=== PATIENT | male | born 1955 | race Caucasian/White ===

== ENCOUNTER 2018-03-29 15:26 | Emergency (ER) | payer MEDICARE, OTHER ==
[~2018-03-29] VITALS: Ht 180.3 cm; Wt 122.5 kg
[2018-03-29] MEDS ORDERED: LISINOPRIL2.5 MG PO (15:44)
[2018-03-29] MEDS ORDERED: GLYBURIDE5 MG PO (15:44)
[2018-03-29] MEDS ORDERED: PLAVIX75 MG PO (15:44)
[2018-03-29] MEDS ORDERED: METOPROLOL TART25 MG PO (15:44)
[2018-03-29] MEDS ORDERED: METFORMIN HCL500 MG PO (15:44)
[2018-03-29] MEDS ORDERED: FUROSEMIDE40 MG PO (15:44)
[2018-03-29] MEDS ORDERED: MORPHINE SULFATE INJ 4 MG/ML INJ IV ONE (16:15)
[2018-03-29 16:25] LABS: BASOPHILS # (AUTO) 0.1 (0.0-0.1); BASOPHILS % 0.8 % (0.0-1.0); EOSINOPHILS # (AUTO) 0.2 (0.0-0.4); EOSINOPHILS % 2.9 % (0.0-6.0); HEMATOCRIT 53.7 % (38.2-49.6); HEMOGLOBIN 16.4 g/dL (14.0-18.0); LYMPHOCYTES # (AUTO) 1.3 (1.0-3.2); MEAN CORPUSCULAR HEMOGLOBIN 31.8 pg (28-32); MEAN CORPUSCULAR HGB CONC 30.5 g/dL (31-35); MEAN CORPUSCULAR VOLUME 104.3 fL (81-99); MONOCYTES # (AUTO) 0.6 (0.2-0.8); MONOCYTES % 8.2 % (4.4-11.3); NEUTROPHILS # (AUTO) 5.4 (2.1-6.9); NEUTROPHILS % 70.7 % (38.7-80.0); PLATELET COUNT 211 x10e3/uL (140-360); RED BLOOD COUNT 5.15 x10e6/uL (4.3-5.7); RED CELL DISTRIBUTION WIDTH 14.4 % (11.7-14.4)
[2018-03-29 16:51] LABS: ALANINE AMINOTRANSFERASE 12 IU/L (0-55); ALBUMIN 3.4 g/dL (3.5-5.0); ALKALINE PHOSPHATASE 95 IU/L (40-150); ANION GAP 13.6 mmol/L (8-16); BLOOD UREA NITROGEN 27 mg/dL (7-26); BUN/CREATININE RATIO 27 (6-25); CALCIUM 8.9 mg/dL (8.4-10.2); CARBON DIOXIDE 36 mmol/L (22-29); CHLORIDE 96 mmol/L (98-107); CREATINE KINASE 45 IU/L (30-200); EST GLOMERULAR FILTRATION RATE > 60 ML/MIN (60-); GLUCOSE 141 mg/dL (74-118); POTASSIUM 5.6 mmol/L (3.5-5.1); SODIUM 140 mmol/L (136-145)
[2018-03-29] MEDS ORDERED: SOD POLYSTYRENE SULFONATE SUSP 15 GM/60 ML BTL PR ONE (18:15)
[2018-03-29] MEDS ORDERED: HYDROMORPHONE 1MG/1ML INJ IV STA (18:21)
--- NOTE | 2018-03-29 18:51 | Diagnostic Imaging Report ---
CT HEAD WITHOUT CONTRAST COMPARISON: None INDICATION: Fall, prior CVA Technique: Noncontrast axial scans were obtained from skull base to the vertex. Coronal and sagittal reconstructions obtained from the axial data. One or more of the following dose reduction techniques were used: Automated exposure control, adjustment of the mA and/or kV according to patient size, and/or utilization of iterative reconstruction technique. Streak and beam hardening artifacts obscure some details. DISCUSSION: Scalp/Skull: Unremarkable. Brain sulci: Mildly prominent. Ventricles: Compensatory dilatation. Extra-axial spaces: No masses or fluid collections. Carotid siphon calcifications are present. Parenchyma: Mild bilateral deep white matter hypodensity is likely chronic microvascular ischemic change. There is an old left striatocapsular lacunar infarct. Otherwise, no masses, hemorrhage, or large vascular territory acute infarct. Dural sinuses: No abnormal densities. Sellar/Suprasellar region: Intact. Skull base: Intact. Additional findings: Upper cervical fusion hardware is partially visualized. Right C1 transpedicular screw is fractured. A 1.7 cm corticated osseous fragment posterior to the C1 anterior arch may be an os odontoideum. IMPRESSION: 1. No acute intracranial abnormalities. 2. Mild supratentorial chronic microvascular ischemic change. Old left striatocapsular lacunar infarct. 3. Mild generalized cerebral volume loss. 4. Partially visualized upper cervical fusion hardware. Age indeterminate fracture of the right C1 transpedicular screw. Signed by: Dr. Jt Rivera M.D. on 03/29/2018 6:48 PM
[2018-03-29] MEDS ORDERED: HYDROMORPHONE 2MG/ML 2 MG/ML ML IV ONE (19:00)
[2018-03-29 22:58] LABS: ABG PH 7.21 (7.31-7.41)
[2018-03-29 23:01] LABS: ABG HCO3 37 mmol/L (23-28); ABG PCO2 91 mmHg (41-51); ABG PO2 68 mmHg (80-105)
--- NOTE | 2018-03-29 23:24 | Diagnostic Imaging Report ---
EXAM: CT CHEST W DATE: 03/29/2018 6:49 PM INDICATION: Shortness of breath, pulmonary embolism COMPARISON: Earlier same day without IV contrast TECHNIQUE: Multidetector CT scanning of the chest was performed. Coronal and sagittal multiplanar reformations were obtained. CT low dose techniques were utilized, as applicable. IV Contrast: 100 ml Isovue 370/300 FINDINGS: LUNGS AND PLEURA: Tracheostomy in place. Secretions are noted within the trachea and right mainstem bronchus. Patchy bibasilar slightly more consolidative opacities with scattered linear areas of atelectasis. Round 1.5 cm left upper lobe anterior pulmonary nodule on image 36. No effusions or pneumothorax. HEART, MEDIASTINUM, VESSELS: Slightly suboptimal contrast bolus within the main pulmonary artery (HU 228) and degraded evaluation of the segmental levels due to motion; otherwise no evidence of more central acute pulmonary embolism. Mild cardiomegaly with coronary artery and aortic atherosclerotic disease. Main pulmonary artery is enlarged, 3.6 cm. Ascending aorta is ectatic, 4.5 cm. Multiple enlarged mediastinal and bilateral hilar nodes, for example 1.2 cm AP window, 1.5 cm in bilateral infrahilar regions. UPPER ABDOMEN: Morphologic changes of the liver which can be seen with cirrhosis. MUSCULOSKELETAL: Multilevel degenerative changes. Nondisplaced left anterolateral fourth and possibly fifth rib fractures. IMPRESSION: 1. Slightly degraded by suboptimal contrast bolus and motion; otherwise no evidence of acute pulmonary embolism. 2. Bibasilar findings which may be due to aspiration and/or developing pneumonia. 3. Indeterminate 1.5 cm left upper lobe nodule. Consider percutaneous sampling and/or PET/CT if no remote priors are available for comparison. 4. Nonspecific mediastinal and hilar adenopathy. 5. Nondisplaced left anterolateral fourth and possibly fifth rib fractures. Signed by: Dr Lexy Ibarra MD on 03/29/2018 11:21 PM
[2018-03-29] MEDS ORDERED: PIPER-TAZ 3.375 GM 50 ML IV STA (23:37)
[2018-03-30 02:26] VITALS: BP 103/62
[2018-03-30] MEDS ORDERED: SODIUM CHLORIDE 0.9% 100 ML 100 ML ONE (05:07)
[2018-03-30] MEDS ORDERED: IOPAMIDOL 370 MG/ML 200 ML INFUS..BTL INJ ONE (05:07)
--- NOTE | 2018-03-30 05:24 | Diagnostic Imaging Report ---
EXAM: CT CHEST WO DATE: 03/29/2018 4:02 PM INDICATION: Fall, left rib pain, SOB COMPARISON: None TECHNIQUE: Multidetector CT scanning of the chest was performed. Coronal and sagittal multiplanar reformations were obtained. CT low dose techniques were utilized, as applicable. Technical issues resulted in a delay in interpretation. IV Contrast: 0 ml Isovue 370/300 FINDINGS: Somewhat degraded by motion artifact. LUNGS AND PLEURA: Tracheostomy in place. Secretions are noted within the trachea and right mainstem bronchus. Minimal bibasilar and scattered linear atelectasis. Round 1.5 cm left upper lobe anterior pulmonary nodule is present. No effusions or pneumothorax. HEART, MEDIASTINUM, Vessels: Mild cardiomegaly with coronary artery and aortic atherosclerotic disease. Main pulmonary artery is enlarged, 3.6 cm. Ascending aorta is ectatic, 4.5 cm. Multiple enlarged mediastinal and bilateral hilar nodes, for example 1.2 cm AP window, 1.5 cm in bilateral infrahilar regions. UPPER ABDOMEN: Cirrhotic appearing liver, partially imaged. MUSCULOSKELETAL: Multilevel degenerative changes. Nondisplaced left anterolateral fourth and possibly fifth rib fractures. Partially imaged ACDF. IMPRESSION: 1. Nondisplaced left anterolateral fourth and possibly fifth rib fractures. No pneumothorax. 2. Indeterminate 1.5 cm left upper lobe nodule. Consider percutaneous sampling and/or PET/CT if no remote priors are available for comparison. 3. Nonspecific mediastinal and hilar adenopathy. Signed by: Dr Lexy Ibarra MD on 03/30/2018 5:21 AM
== END 2018-03-30 01:30 | disposition other institution (70) ==
LOC: ER 15:26
DX: S22.42XA Multiple fractures of ribs, left side, initial encounter for closed fracture (principal); S20.212A Contusion of left front wall of thorax, initial encounter; J96.02 Acute respiratory failure with hypercapnia; J96.01 Acute respiratory failure with hypoxia; J15.9 Unspecified bacterial pneumonia; W07.XXXA Fall from chair, initial encounter; Y92.008 Other place in unspecified non-institutional (private) residence as the place of occurrence of the external cause; I13.0 Hypertensive heart and chronic kidney disease with heart failure and stage 1 through stage 4 chronic kidney disease, or unspecified chronic kidney disease; N18.9 Chronic kidney disease, unspecified; F32.9 Major depressive disorder, single episode, unspecified; Z87.891 Personal history of nicotine dependence
CPT/HCPCS: 31500; 36415; 36600; 70450; 71250; 71260; 80053; 82550; 82553; 82805; 82948; 84484; 85025; 93005; 94002; 99285; J1170; J2270; J2543; Q9967

== ENCOUNTER → 2019-11-01 | Day surgery (SDC) | payer OTHER ==
[~2019-11-01] MED LIST: FUROSEMIDE40 MG PO; GLYBURIDE5 MG PO; LIPITOR10 MG PO; LISINOPRIL2.5 MG PO; METFORMIN HCL500 MG PO; METOPROLOL TART25 MG PO; OR PHACO EYE KIT ONE; PLAVIX75 MG PO; PREOP PHACO EYE KIT ONE
[2019-11-01 14:20] VITALS: BP 115/62
== END | disposition home or self-care (01) ==
LOC: OR 10:40
PROVIDERS: ATTEND Ophthalmology
DX: H25.12 Age-related nuclear cataract, left eye (principal); E11.9 Type 2 diabetes mellitus without complications; M19.90 Unspecified osteoarthritis, unspecified site; I25.10 Atherosclerotic heart disease of native coronary artery without angina pectoris; I10 Essential (primary) hypertension; E78.5 Hyperlipidemia, unspecified; R53.1 Weakness; F32.9 Major depressive disorder, single episode, unspecified; Z88.6 Allergy status to analgesic agent; Z01.812 Encounter for preprocedural laboratory examination; Z11.59 Encounter for screening for other viral diseases; Z79.84 Long term (current) use of oral hypoglycemic drugs; Z79.02 Long term (current) use of antithrombotics/antiplatelets; Z86.73 Personal history of transient ischemic attack (TIA), and cerebral infarction without residual deficits; Z95.5 Presence of coronary angioplasty implant and graft; Z93.0 Tracheostomy status; Z85.828 Personal history of other malignant neoplasm of skin
CPT/HCPCS: 36415; 66984; 82948; 87635; V2632